=== PATIENT | male | born 1970 | race Caucasian/White ===

== ENCOUNTER → 2016-08-11 | Outpatient (CLI) | payer OTHER | END | disposition home or self-care (01) | LOC: EKG 11:00 | DX: I51.7 Cardiomegaly (principal); J98.4 Other disorders of lung; I27.2 Other secondary pulmonary hypertension; I34.0 Nonrheumatic mitral (valve) insufficiency; R22.32 Localized swelling, mass and lump, left upper limb; R22.43 Localized swelling, mass and lump, lower limb, bilateral; I87.393 Chronic venous hypertension (idiopathic) with other complications of bilateral lower extremity; R01.1 Cardiac murmur, unspecified | CPT/HCPCS: 93306 ==